=== PATIENT | female | born 2000 | race Caucasian/White ===

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

== ENCOUNTER → 2022-02-25 | Outpatient (CLI) | payer OTHER | LOC: COL.RAD 01-28 12:30 | DX: F07.81 Postconcussional syndrome (principal); G43.709 Chronic migraine without aura, not intractable, without status migrainosus ==